=== PATIENT | male | born 1995 | race Caucasian/White ===

== ENCOUNTER 2019-03-08 12:05 | Emergency (ER) | payer SELFPAY ==
[2019-03-08 12:30] VITALS: BP 151/76
--- NOTE | 2019-03-08 12:39 | UC ---
Laceration HPI - HPI Summary HPI Summary: 23-year-old male presents for laceration to his left hand. States that approximately 11:00 this morning he was cooking and he accidentally tripped and cut himself with a sharp knife to the webspace between his thumb and index finger. Reports he is unable to flex the thumb. States he stopped at the [employer] on his way here and they were able to control the bleeding with direct pressure. They cleaned and dressed the wound at that time. States last tetanus was 2 years ago. Denies any numbness or tingling. - History Of Current Complaint Chief Complaint: UCLaceration Stated Complaint: LEFT HAND LACERATION Time Seen by Provider: 03/08/19 12:32 Hx Obtained From: Patient Pain Intensity: 6 - Allergies/Home Medications Allergies/Adverse Reactions: Allergies Allergy/AdvReac Type Severity Reaction Status Date / Time No Known Allergies Allergy Verified 03/08/19 12:30 Home Medications: Home Medications NK [No Home Medications Reported] 03/08/19 [History Confirmed 03/08/19] PMH/Surg Hx/FS Hx/Imm Hx Previously Healthy: Yes - Denies significant PMH - Surgical History Surgical History: Yes Surgery Procedure, Year, and Place: T&A - Family History Known Family History: Positive: Non-Contributory - Social History Occupation: Employed Full-time Lives: Alone Alcohol Use: Rare Substance Use Type: Marijuana Substance Use Comment - Amount & Last Used: occasional Smoking Status (MU): Light Every Day Tobacco Smoker Type: Cigarettes Length of Time of Smoking/Using Tobacco: 8 years Have You Smoked in the Last Year: Yes - Immunization History Most Recent Tetanus Shot: a couple of years ago Review of Systems All Other Systems Reviewed And Are Negative: Yes Skin: Positive: Other - See HPI Respiratory: Positive: Negative Cardiovascular: Positive: Negative Gastrointestinal: Positive: Negative Genitourinary: Positive: Negative Musculoskeletal: Positive: Decreased ROM - Unable to flex left thumb Neurological: Negative: Paresthesia, Numbness Is Patient Immunocompromised?: No Physical Exam - Summary Physical Exam Summary: GENERAL APPEARANCE: Well developed, well nourished, alert and cooperative, and appears to be in no acute distress. CARDIAC: Normal S1 and S2. No S3, S4 or murmurs. Rhythm is regular. There is no peripheral edema, cyanosis or pallor. Extremities are warm and well perfused. Capillary refill is less than 2 seconds. Peripheral pulses intact. LUNGS: Clear to auscultation without rales, rhonchi, wheezing or diminished breath sounds. ABDOMEN: Positive bowel sounds. Soft, nondistended, nontender. No guarding or rebound. No masses or hepatosplenomegally. MUSKULOSKELETAL: Normal muscular development. Normal gait. Extension to the left thumb intact but patient is unable to flex. Circulation and sensation intact. EXTREMITIES: Deep linear laceration of the web space of the left hand between the thumb and index finger with a complete laceration of the flexor tendon. Bleeding controlled. No foreign body noted. SKIN: Skin normal color, texture and turgor. Triage Information Reviewed: Yes Vital Signs: Initial Vital Signs Temp 98.8 F 03/08/19 12:23 Pulse 67 03/08/19 12:23 Resp 18 03/08/19 12:23 BP 151/76 03/08/19 12:23 Pulse Ox 100 03/08/19 12:23 Vital Signs Reviewed: Yes Laceration Course/Dx - Course/Dx Course Of Treatment: 23-year-old male presents for laceration to his left hand. States that approximately 11:00 this morning he was cooking and he accidentally tripped and cut himself with a sharp knife to the webspace between his thumb and index finger. Reports he is unable to flex the thumb. States he stopped at the [employer] on his way here and they were able to control the bleeding with direct pressure. They cleaned and dressed the wound at that time. States last tetanus was 2 years ago. Denies any numbness or tingling. Afebrile. Vital signs stable. Patient had a deep linear laceration to the webspace between his left thumb and index finger with a complete laceration of the flexor tendon. Bleeding was controlled. No foreign body was noted. Extension of the left thumb was intact but patient was unable to flex the thumb. Circulation and sensation were intact. I spoke with Dr. He office and they would like to evaluate the patient in the office today. A bulky gauze dressing was placed over the injury by the RN. Patient is to go directly to the orthopedic office for further evaluation and treatment. Patient is agreeable to this plan of care and elected to transport via private vehicle. - Differential Dx - Laceration/Wound Differental Diagnoses: Laceration - Diagnosis Provider Diagnosis: Laceration of left hand involving tendon Discharge - Sign-Out/Discharge Documenting (check all that apply): Patient Departure All imaging exams completed and their final reports reviewed: No Studies - Discharge Plan Condition: Stable Disposition: HOME Patient Education Materials: Tendon Laceration (ED) Referrals: No Primary Care Phys,NOPCP [Primary Care Provider] - Rich He MD [Medical Doctor] - (Go directly to the office from here.) Additional Instructions: You have a laceration of the left hand that involves the flexor tendon of the thumb. I spoke with Dr. He office and he would like to evaluate you in the office today. Please go directly to the orthopedic office from here for further evaluation. Do not eat or drink anything until you have been evaluated. - Billing Disposition and Condition Condition: STABLE Disposition: Home
[2019-03-08] MEDS ORDERED: Ibuprofen TAB* 600 MG PO ONE (12:49)
== END 2019-03-08 13:02 | disposition home or self-care (01) ==
LOC: UCCORT 12:05
DX: S66.922A Laceration of unspecified muscle, fascia and tendon at wrist and hand level, left hand, initial encounter (principal); W26.0XXA Contact with knife, initial encounter; Y93.G3 Activity, cooking and baking; Y92.9 Unspecified place or not applicable; F17.210 Nicotine dependence, cigarettes, uncomplicated
CPT/HCPCS: 99201; A9270-GY; G0463

== ENCOUNTER → 2019-03-09 16:43 | Day surgery (SDC) | payer OTHER ==
[~2019-03-09 16:43] MED LIST: Acetaminophen IV 1GM/100ML * 1,000 MG/100 ML VIAL IVPB ONE; Acetaminophen IV 1GM/100ML * 100 ML ONE; Bupivacaine 0.25% SDV PF* 10 ML VIAL INJ ONE; Dexamethasone IV* 4 MG/ML 1 ML (4 MG) ONE; Gabapentin CAP(*) 300 MG ONE; HYDROcodone/ACETAMIN 5-325 MG* 1 TAB ONE; HYDROmorphone INJ1* 1 MG/ML SYRINGE ONE; Ketorolac INJ* 30 MG/ML 1 ML VIAL ONE; Midazolam* 1 MG/ML 2 ML VIAL (2 MG) ONE; Naloxone* 0.4 MG/ML 1 ML VIAL IV PRN; Ondansetron INJ* 2 MG/ML VIAL ONE; Propofol* 10 MG/ML 20 ML BTL ONE; ceFAZolin 2 GM in NS PREMIX(*) 2 GM/100 ML BAG IVPB ONE; fentaNYL* 50 MCG/ML 2 ML VIAL (100 MCG VIAL) ONE
[2019-03-09] MEDS: fentaNYL* 50 MCG/ML 2 ML VIAL (100 MCG VIAL) IV PRN ×2 (23:29→23:38)
[2019-03-09] MEDS: HYDROmorphone INJ1* 1 MG/ML SYRINGE IV PRN ×2 (23:34→23:52)
[2019-03-10] MEDS: fentaNYL* 50 MCG/ML 2 ML VIAL (100 MCG VIAL) IV PRN
[2019-03-10 00:48] VITALS: BP 164/96
--- NOTE | 2019-03-10 05:01 | OP ---
DATE OF OPERATION: 03/09/19 [facility] DATE OF : [birth year] SURGEON: Rich He MD [employer]ATING MACHINE OPERATOR: TAMMY Cuellar. An zoning assistant was needed for the entirety of the procedure to aid in positioning of the arm and retraction. ANESTHESIOLOGIST: Dr. Ireland. ANESTHESIA: General. PRE-OP DIAGNOSIS: Left thumb knife wound with flexor tendon and ulnar digital nerve lacerations. POST-OP DIAGNOSES: 1. Left thumb flexor pollicis longus rupture at the level of the metacarpophalangeal joint. 2. Left thumb ulnar digital nerve laceration. 3. Left thumb medial digital artery laceration. 4. Left thumb volar plate near complete transection or laceration. OPERATIVE PROCEDURE: 1. Exploration of left thumb penetrating wound. 2. Irrigation and debridement and removal of foreign material, left thumb, traumatic wound measuring 6 cm. 3. Repair of left thumb flexor pollicis longus tendon. 4. Repair of left thumb ulnar digital nerve with conduit. 5. Repair of left thumb volar plate. INDICATIONS: Vignesh took a very large sharp interviewing clerk type knife and was cutting and some shortening and had a forceful laceration to the ulnar aspect of the thumb near the MCP joint. It was large. There was a lot of bleeding, seen in the urgent care in the office yesterday and arrangements were made for surgery today. ESTIMATED BLOOD LOSS: 5 mL. COMPLICATIONS: None. FINDINGS: See above and below. DESCRIPTION OF PROCEDURE: Vignesh was seen in the preoperative holding area. The correct site, side, and procedure were identified. We came back to operative room where the arm was prepped and draped in the usual fashion. A time-out was performed. The sutures of the wound it had been closed with were removed prior to prepping the arm with Betadine prep. The arm was exsanguinated with the Esmarch and the tourniquet was inflated to 250 mmHg. I went ahead and extended the traumatic wound from near the ulnar aspect of the MCP joint obliquely distally over the over proximal phalanx. I then extended traumatic wound from the ulnar aspect of the MCP joint proximally in a Haydee type fashion. Dissection was carried down. The condyles of the MCP joint were immediately apparent, the volar plate was pretty much near completely transected. The undersurface of the sesamoid bones were visualized as the volar plate was pulled back on itself proximally. There was quite a bit of foreign material actually. I went ahead and irrigated out and debrided back all of that foreign material and got the wound wound nice and clean. Skin edges were trimmed as well. Once I had a nice clean wound, I took some 3-0 PDS suture and I repaired the volar plate with 3 [id number]-[id number]-[id number] sutures. This provided an excellent volar plate repair. I then identified the ulnar digital nerve distally, proximally and placed aside for subsequent repair. The distal FPL stump was encountered just proximal to the oblique ryan and was a clean laceration. I looked for the proximal tendon down between the 2 heads of FPB muscle, I could not find it. Ultimately, I ended up having to make a 2 to 3 cm longitudinal incision over the carpal tunnel and dissecting down and releasing the transverse carpal ligament just out the radial aspect of the hamate in a standard carpal tunnel release fashion. Once I had completed the carpal tunnel release, I was able to gently retract the median nerve and the flexor tendons out the way and then the FPL tendon was found in the carpal tunnel. The tendon was delivered up into the carpal tunnel wound. I placed a 4 -0 Ethibond suture just in the distal end aspect of the tendon. I was unable to pass the tendon passer down through the tract to the FPL tendon from my more distal wound down into the carpal tunnel coming out underneath median nerve. I grabbed the 4-0 Ethibond suture and delivered the FPL tendon back up into its tract. Taking care not to wrap the tendon around the median nerve, to go underneath median nerve in its normal path. Once I had the FPL tendon brought back, I sewed each side of the tendon in epitendinous fashion with a figure-of- eight 4-0 Prolene suture. This helped the tendon edges perfectly oppose and perfectly line up. I then placed a 6 strand 3-0 Ethibond core suture. This was tied off and I had excellent tendon opposition. I had left my 1 tail of my 4-[address] and so went ahead performed a simple running epitendinous stitch circumferentially and this was tied off again around the edge. The tendon repair was now complete. We had excellent opposition. There was no gapping. I next turned my attention to the ulnar digital nerve. What I had initially thought was the ulnar digital nerve is actually the ulnar digital artery. So, I went ahead and dissected out the ulnar digital nerve and trimmed the edges of the nerve proximally and distally taking this to a mm or 2 with a sterile tongue depressor and an 11 blade. Once the I had nice clean edges, I went ahead and fit it to the 2 x 15 mm Axuard nerve connector. The proximal end of the nerve was docked into the nerve connector and sutured in place with 2 epineurial 9- 0 nylon suture. I then brought my other end of the tendon down into the nerve connector, I placed it into the nerve so that the edges of the nerve were just touching, the other side of the nerve was secured with multiple 9-0 epineurial nylon sutures. Once the repair was complete, the edges of the nerve were just touching and I was very pleased with the repair. At this point, everything was looking pretty good. There was excellent tenodesis effect with the FPL tendon. There was no gapping. The nerve repair was holding very nicely. I irrigated out the wound copiously. Skin was all closed with 4-0 nylon suture. The dorsal blocking thumb spica splint was applied. He was taken to the recovery room in stable condition. [id number]/[facility] #: [id number] FILOMENA
== END | disposition home or self-care (01) ==
LOC: OR 16:43
PROVIDERS: ATTEND Orthopaedic Surgery Hand Surgery
DX: S61.022A Laceration with foreign body of left thumb without damage to nail, initial encounter (principal); W26.0XXA Contact with knife, initial encounter; Y93.G3 Activity, cooking and baking; Y92.010 Kitchen of single-family (private) house as the place of occurrence of the external cause
CPT/HCPCS: A9270-GY; C1763; J0690; J1100; J1170; J1885; J2250; J2405; J2704; J3010; J3490

== ENCOUNTER → 2019-06-26 07:40 | Day surgery (SDC) | payer OTHER ==
[~2019-06-26 07:40] MED LIST changes: -Acetaminophen IV 1GM/100ML * 1,000 MG/100 ML VIAL IVPB ONE; -Acetaminophen IV 1GM/100ML * 100 ML ONE; +Buffered Lidocaine 1% SYRIN* 1 ML/SYRINGE INTRADERM ONE; +Dexamethasone IV* 4 MG/ML 1 ML (4 MG) IV SLOW PU ONE; +DiMENhydriNATE IV* 50 MG/ML VIAL IV PUSH PRN; +Famotidine IV* 10 MG/ML 2 ML (20 mg) IV ONE; +Famotidine IV* 10 MG/ML 2 ML (20 mg) ONE; -Gabapentin CAP(*) 300 MG ONE; -HYDROcodone/ACETAMIN 5-325 MG* 1 TAB ONE; -HYDROmorphone INJ1* 1 MG/ML SYRINGE ONE; +Lactated Ringers 1000 ML Bag* 1,000 ML IV SCH; +Lidocaine 2% PF * 5 ML VIAL ONE; -Midazolam* 1 MG/ML 2 ML VIAL (2 MG) ONE; -ceFAZolin 2 GM in NS PREMIX(*) 2 GM/100 ML BAG IVPB ONE; +ceFAZolin VIAL(*) VIAL ONE; +fentaNYL* 50 MCG/ML 2 ML VIAL (100 MCG VIAL) IV PRN
[2019-06-26 13:26] VITALS: BP 142/79
--- NOTE | 2019-06-26 21:43 | OP ---
DATE OF OPERATION: 06/26/19 - [facility] DATE OF : [birth year] SURGEON: Rich He MD. SUPERVISOR SULFURIC ACID PLANT: TAMMY Celestin. An metal forger's assistant was needed for the procedure to aid in position of the arm and retraction. ANESTHESIOLOGIST: Dr. Connelly. ANESTHESIA: General. PRE-OP DIAGNOSIS: Left carpal tunnel syndrome, status post prior flexor pollicis longus tendon repair. POST-OP DIAGNOSIS: Left carpal tunnel syndrome with median nerve neuritis. OPERATIVE PROCEDURES: 1. Left carpal tunnel release with median nerve wrapping, rerouting of the FPL tendon. 2. Left wrist hypothenar fat pad transfer. INDICATIONS: Vignesh had the aforementioned FPL tendon repair. The tendon was found in the carpal tunnel. That repair has healed nicely. The FPL tendon is functioning. He has developed postsurgically numbness in the ulnar half of the index finger, the middle finger, and the radial half of the ring finger. The index surgery was in February, I believe. I became aware of it not this last visit but the visit before this. We watched it for about a month just to see if it would improve and I told him we should explore it, and if there was any issue with the median nerve and FPL tendon, we should fix it to try to optimize his outcome. He understands this, he very much agrees. He presents for surgery today. EBL: 2 mL COMPLICATIONS: None. FINDINGS: See above and below. DESCRIPTION OF PROCEDURE: Vignesh was seen in the preoperative holding area. The correct site, side, and procedure were identified. We came back to the operating room. The arm was prepped and draped in the usual fashion. A time- out was performed. I extended his prior longitudinal incision in the proximal palm a little bit distally and then I brought it back across the wrist flexion crease in a Haydee type fashion ulnarly. Full-thickness flaps were raised off the fascia. The fascia proximally was released. This was carried down through the scar tissue over the carpal tunnel and that was all released. The palmar fascia distally was released. I extended the decompression proximally and distally. At this point, the median nerve was seen right adjacent to the FPL tendon. I followed that down any scar tissue and I did note that the FPL tendon was coming through between a couple of the distal branches of the median nerve. I went ahead and performed a neurolysis and freed up the tendon from any adhesions so that I get a really good look of what was going on. After I had a really good look at everything, I noted how the median nerve was indeed coming through the distal bifurcation and going around a couple of the distal branches. This would explain his symptoms perfectly. There was no other way to address this other than to perform a rerouting of the FPL tendon. I did this by taking the FPL just distal to the musculotendinous junction and about 3 or 4 cm later, I put two [id number]-[id number] 3-0 Ethibond sutures at each location. I then did a Z-release in the intervening segment. Once the release was done, I was able to reroute the tendon well away from the median nerve. I performed a very thorough dissection to make sure all branches including the motor branch of the median nerve were sitting superficial and ulnar to the FPL tendon. I followed the FPL tendon all the way down to where it bisects the two heads of the FPB muscle. In fact, I released a little bit the leading edge of the fascia of that muscle just to make sure there was nothing interposed. Once I confirmed there was nothing interposed, I went ahead and sewed my proximal aspect of the distal limb of the tendon back to its [place] footprint on the proximal tendon with a 4-strand course suture. I then performed a 3-weave Pulvertaft weave of the two limbs of the tendon before suturing back the distal end of the proximal tendon to its footprint with a [id number]-icunp 3-0 Ethibond suture. I then went ahead and sewed multiple fdakii-qf-skiyu sutures to secure the weave, probably 7 or 8 sutures, it was a extremely solid repair. At this point, nothing was impinging on the median nerve. I did go ahead and make sure I had a nice clean full neurolysis. I took an Axoguard 7 x 40 mm nerve protector and I wrapped the nerve and secured the edge of the wrap because there was a 6-0 Prolene suture taking care not to sew the wrap to the nerve. I could slide the wrap up and down the nerve to confirm it was not sewn to the nerve. At this point, everything was looking good. I did decide I wanted to cushion the nerve a little bit, try to help it heal. I went ahead and released the hypothenar fat pad from the hypothenar eminence on the ulnar side of the wrist. I took care to preserve the perforating vessels and to not injure the ulnar neurovascular bundle. Once I had mobilized the fat pad, I rotated the hypothenar fat pad over and sewed it down to the undersurface of the transverse carpal ligament with multiple 4-0 Vicryl sutures. At this point, everything was looking very good. The nerve was totally free. I took 1 more look at it distally to make sure everything looked really good. The wound was irrigated out. Skin was closed with 4-0 nylon suture. He was placed in a thumb spica splint with the wrist in neutral flexion. Tourniquet was deflated. The hand and thumb pinked up immediately. He was taken to the recovery room in stable condition. [id number]/[facility] #: [id number] MTDD
== END | disposition home or self-care (01) ==
LOC: OR 07:40
PROVIDERS: ATTEND Orthopaedic Surgery Hand Surgery
DX: G56.02 Carpal tunnel syndrome, left upper limb (principal); G56.12 Other lesions of median nerve, left upper limb; Z72.0 Tobacco use
CPT/HCPCS: C1763; J0690; J1100; J1885; J2405; J2704; J3010; J3490